=== PATIENT | female | born 1995 | race Caucasian/White ===

== ENCOUNTER 2023-04-08 13:42 | Outpatient (CLI) | payer BC, SELFPAY | END 2023-04-08 13:43 | disposition home or self-care (01) | LOC: NFLDREF 04-14 06:08 | PROVIDERS: Visit Provider Physician Assistant | DX: R30.0 Dysuria (principal); N39.0 Urinary tract infection, site not specified; N30.90 Cystitis, unspecified without hematuria | CPT/HCPCS: 87086 ==

== ENCOUNTER 2023-06-23 10:00 | Outpatient (CLI) | payer BC, SELFPAY | END 2023-06-23 10:01 | disposition home or self-care (01) | PROVIDERS: PCP Physician Assistant Medical; Visit Provider Physician Assistant Medical | DX: Z13.228 Encounter for screening for other metabolic disorders (principal) | CPT/HCPCS: 80053 ==

== ENCOUNTER 2023-09-15 09:02 | Outpatient (CLI) | payer OTHER, SELFPAY ==
--- NOTE | 2023-09-15 09:15 | US_ITS ---
Patient: CATIE OSBORNE Facility:?[facility] Patient ID:?[id number] Site Patient ID:?[id number]. Site :?1995 Study:?US-OB Pelvis TV dating/viability-09/15/2023 9:55:48 AM Ordering Physician:GEORGES Final Report: INDICATION: Unsure dates, estimated gestational age 8 weeks 6 days. Technique: Multiple transvaginal grayscale and Doppler images obtained FINDINGS: Examination shows a single intrauterine gestation. MEASUREMENTS: Right ovary measures 2.3 x 1.5 x 1.5 cm. Corpus luteum present. Left ovary was not visible. EARLY GESTATION MEASUREMENTS: Di Giorgio-rump length 2.8 cm, AGA of 9 weeks, 4 days. Mean gestational sac 3.7 cm, AGA of 9 weeks, 0 days. Yolk sac: 3.8 mm. Heart Rate: 173 bpm. IMPRESSION: 1. Single viable IUP. 2. Measurements consistent with estimated clinical dates. 3. Maternal left ovary was not visible. Dictated by Calin Theodore MD @ 09/15/2023 12:02:32 PM Signed by:?Calin Theodore MD @09/15/2023 12:02:32 PM (Electronic Signature)
== END 2023-09-15 09:03 | disposition home or self-care (01) ==
LOC: US 09:10
PROVIDERS: PCP Physician Assistant Medical; Visit Provider Registered Nurse
DX: Z34.91 Encounter for supervision of normal pregnancy, unspecified, first trimester (principal); Z3A.08 8 weeks gestation of pregnancy
CPT/HCPCS: 76817; 86592; 86703; 86704; 86706; 86762; 86787; 86803; 86850; 86900; 86901; 87086; 87340; 87491; 87591

== ENCOUNTER 2023-09-15 10:28 | Outpatient (CLI) | payer BC, SELFPAY ==
[2023-09-15 18:38] LABS: Chlamydia DNA Amplified* NOT DETECTED (No Detected); GC DNA Amplified* NOT DETECTED (No Detected)
== END 2023-09-15 10:29 | disposition home or self-care (01) ==
PROVIDERS: PCP Physician Assistant Medical; Visit Provider Registered Nurse
DX: Z34.91 Encounter for supervision of normal pregnancy, unspecified, first trimester (principal)
CPT/HCPCS: 86592; 86703; 86704; 86706; 86762; 86787; 86803; 86850; 86900; 86901; 87086; 87340; 87491; 87591

== ENCOUNTER 2023-11-30 08:48 | Outpatient (CLI) | payer MEDICAID, SELFPAY ==
--- NOTE | 2023-11-30 09:15 | US_ITS ---
Patient: CATIE OSBORNE Facility:?[facility] Patient ID:?[id number] Site Patient ID:?[id number]. Site :?1995 Study:?US-OB Pelvis OB ANATOMY-11/30/2023 9:57:19 AM Ordering Physician:?CA RAMOS CNP Final Report: OBSTETRICAL ULTRASOUND ? ANATOMY SURVEY INDICATION: anatomy scan. HELENA by ULTRASOUND: 04/15/2024. GESTATIONAL AGE: 20w 3d. TECHNIQUE: Transabdominal pelvic ultrasound. COMPARISON: 09/15/2019. FINDINGS: position: Breech. Cervix: Visualized. Length of closed cervix: 3.8 cm. Placenta position: Anterior. Placenta tip to internal os: 4.6 cm. Umbilical cord: 3-vessel cord. Placental insertion: Central. Amniotic fluid: 5.0 cm SDP. ANATOMY SURVEY: Observed Structures Cerebellum: 2.0 cm, 20 weeks 4 days Cisterna magna: 3.9 mm Nuchal fold: 4.5 mm Lateral ventricle: 6.1 mm CSP Midline falx Choroid plexus Spine Stomach Abdominal cord insert Urinary bladder Kidneys Diaphragm Nose/lips Orbital view Profile Upper extremities Lower extremities Hands Feet 4-chamber heart LVOT RVOT 3VV 3VTV Biometry: BPD: 4.9 cm, 20 weeks 5 days, 60%. HC: 18.4 cm, 20 weeks 6 days, 59%. AC: 15.8 cm, 21 weeks 0 days, 62%. FL: 3.4 cm, 20 weeks 3 days, 44%. FL/AC: 21.18%. HC/AC ratio: 1.17. heart rate: 142 bpm. age by this ultrasound: 20 weeks 5 days. HELENA by this ultrasound: 04/13/2024. Estimated weight: 374.56 grams (13 ounces). Percentile by HELENA: 64%. IMPRESSION: 1. Measurements are consistent with dates. Good interval growth since the prior exam. 2. Normal anatomic survey. Clain Theodore M.D. Body/Diagnostic Radiologist [email or web address] RACHEL/jarrett D& Transcribed: 12:35 p.m. SP/Dictated by: Calin Theodore MD @ 12/01/2023 10:40:00 AM Signed by:?Cailn Theodore MD @12/01/2023 12:46:35 PM (Electronic Signature)
== END 2023-11-30 08:49 | disposition home or self-care (01) ==
LOC: US 08:49
PROVIDERS: PCP Physician Assistant Medical; Visit Provider Registered Nurse
DX: Z34.92 Encounter for supervision of normal pregnancy, unspecified, second trimester (principal); Z3A.20 20 weeks gestation of pregnancy
CPT/HCPCS: 76805

== ENCOUNTER 2023-12-28 11:28 | Outpatient (CLI) | payer MEDICAID, SELFPAY ==
[2023-12-28 12:03] LABS: Clue Cells No Clue Cells Seen (None Seen); Trichomonas No Trichomonas Seen (None Seen); Yeast Yeast Seen (None Seen)
== END 2023-12-28 11:29 | disposition home or self-care (01) ==
LOC: NFLDREF 11:29
PROVIDERS: PCP Physician Assistant Medical; Visit Provider Obstetrics & Gynecology
DX: N90.89 Other specified noninflammatory disorders of vulva and perineum (principal)
CPT/HCPCS: 87210

== ENCOUNTER 2024-01-25 11:12 | Outpatient (CLI) | payer MEDICAID, SELFPAY | END 2024-01-25 11:13 | disposition home or self-care (01) | PROVIDERS: PCP Physician Assistant Medical; Referring Provider Physician Assistant Medical; Visit Provider Obstetrics & Gynecology | DX: Z34.83 Encounter for supervision of other normal pregnancy, third trimester (principal) | CPT/HCPCS: 86592 ==

== ENCOUNTER 2024-03-07 10:50 | Outpatient (CLI) | payer MEDICAID, SELFPAY | END 2024-03-07 10:51 | disposition home or self-care (01) | LOC: NFLDREF 03-08 11:43 | PROVIDERS: PCP Physician Assistant Medical; Referring Provider Physician Assistant Medical; Visit Provider Obstetrics & Gynecology | DX: O99.013 Anemia complicating pregnancy, third trimester (principal); Z3A.34 34 weeks gestation of pregnancy | CPT/HCPCS: 82728 ==

== ENCOUNTER 2024-03-14 09:59 | Outpatient (RCR) | payer MEDICAID, SELFPAY ==
--- NOTE | 2024-03-08 14:13 | URNOTE ---
Request received for authorization for Iron Sucrose (Venofer) (J1756). Prior authorization is not required per [facility]'s Medical Injectable Drug Authorization List.
[2024-03-14] MEDS: 0.9 % SODIUM CHLORIDE 250 ml IV (10:15)
[2024-03-14] MEDS: SODIUM CHLORIDE 0.9 % (FLUSH) 10 ML SYRINGE IVF (10:15)
[2024-03-14] MEDS: IRON SUCROSE COMPLEX 200 MG in 0.9 % SODIUM CHLORIDE 100 ml 100 ML 440 MG IVPB (10:23)
[2024-03-14 10:27] VITALS: BP 108/72; PULSE 81; RESP 20; TEMP 36.7; O2SAT 97
[2024-03-14 10:41] VITALS: BP 107/69; PULSE 88; RESP 16; TEMP 36.6; O2SAT 99
[2024-03-14 11:14] VITALS: BP 97/62; PULSE 76; RESP 14; TEMP 36.8; O2SAT 98
== END 2024-09-10 23:59 | disposition home or self-care (01) ==
LOC: CCIC 09:59
PROVIDERS: PCP Physician Assistant Medical; Referring Provider Physician Assistant Medical; Visit Provider Obstetrics & Gynecology
DX: O99.019 Anemia complicating pregnancy, unspecified trimester (principal); D50.9 Iron deficiency anemia, unspecified
CPT/HCPCS: 96365; J1756; J7050

== ENCOUNTER 2024-03-21 11:45 | Outpatient (CLI) | payer MEDICAID, SELFPAY ==
[2024-03-22 16:21] LABS: Strep B DNA Probe POSITIVE (Negative)
[2024-03-22 20:07] LABS: Strep B Susceptibility Needed? No
== END 2024-03-21 11:46 | disposition home or self-care (01) ==
LOC: NFLDREF 11:45
PROVIDERS: PCP Physician Assistant Medical; Visit Provider Obstetrics & Gynecology
DX: Z34.83 Encounter for supervision of other normal pregnancy, third trimester (principal)
CPT/HCPCS: 87081; 87653

== ENCOUNTER 2024-03-26 00:27 | Outpatient (CLI) | payer MEDICAID, SELFPAY ==
[2024-03-26 00:41] VITALS: BP 114/66; PULSE 82
[2024-03-26 00:42] VITALS: PULSE 86; O2SAT 97
[2024-03-26 00:45] VITALS: RESP 16; TEMP 36.9
--- NOTE | 2024-03-26 04:37 | PC.OBNST ---
NST Note NST Note Start: 03/26/24 00:35 Freq: ONCE Status: Active Protocol: Document 03/26/24 04:25 ASH (Rec: 03/26/24 04:27 ASH [id number]) NST Note 2 Para (# of births) 0 EDC 04/15/24 Gestational Age In Weeks & Days 37 Weeks & 1 Days Patient Presented with Complaint(s) of Decreased movement Reactive Yes Appropriate for Gestational Age Yes DIANA Phillip RN Date 03/26/24 Reactive Yes Appropriate for Gestational Age Yes DIANA Eduardo, DIANA Date 03/26/24 OB NST charge Yes Complete NST Note via Write Note Yes The provider's electronic signature indicates the NST is reactive/appropriate for gestational age. *Note to provider: If an addendum is required, open the patient's chart and click on the note under the Nurse/Allied Health tab.
== END 2024-03-26 01:10 | disposition home or self-care (01) ==
LOC: OB OUT 00:27 → OB 00:27
PROVIDERS: PCP Physician Assistant Medical; Visit Provider Obstetrics & Gynecology
DX: O36.8130 Decreased fetal movements, third trimester, not applicable or unspecified (principal); Z3A.37 37 weeks gestation of pregnancy
CPT/HCPCS: 59025; G0463

== ENCOUNTER 2024-03-29 09:18 | Outpatient (CLI) | payer MEDICAID, SELFPAY | END 2024-03-29 09:19 | disposition home or self-care (01) | LOC: NFLDREF 04-03 07:02 | PROVIDERS: PCP Physician Assistant Medical; Referring Provider Physician Assistant Medical; Visit Provider Obstetrics & Gynecology | DX: O99.013 Anemia complicating pregnancy, third trimester (principal); D64.9 Anemia, unspecified; Z3A.37 37 weeks gestation of pregnancy | CPT/HCPCS: 82728 ==

== ENCOUNTER 2024-04-12 04:52 | Outpatient (CLI) | payer MEDICAID, SELFPAY ==
[2024-04-12 05:14] VITALS: BP 127/72; PULSE 78
[2024-04-12 05:15] VITALS: TEMP 36.7
[2024-04-12] MEDS: hydrOXYzine pamoate 25 MG CAPSULE 100 MG PO (06:35)
[2024-04-12] MEDS: MORPHINE 10 MG/ML inj IM (06:37)
--- NOTE | 2024-04-12 06:56 | PC.OBNST ---
NST Note NST Note Start: 04/12/24 05:02 Freq: ONCE Status: Active Protocol: Document 04/12/24 06:54 JEFRY (Rec: 04/12/24 06:55 JEFRY [id number]) NST Note 2 Para (# of births) 0 EDC 04/15/24 Gestational Age In Weeks & Days 39 Weeks & 4 Days Patient Presented with Complaint(s) of Contractions/cramping Reactive Yes Appropriate for Gestational Age Yes DIANA Lorenzo RNC Date 04/12/24 Reactive Yes Appropriate for Gestational Age Yes DAINA Bowling RN Date 04/12/24 OB NST charge Yes Complete NST Note via Write Note Yes The provider's electronic signature indicates the NST is reactive/appropriate for gestational age. *Note to provider: If an addendum is required, open the patient's chart and click on the note under the Nurse/Allied Health tab.
== END 2024-04-12 06:50 | disposition home or self-care (01) ==
LOC: OB OUT 04:52 → OB 04:53
PROVIDERS: PCP Physician Assistant Medical; Visit Provider Obstetrics & Gynecology
DX: O99.013 Anemia complicating pregnancy, third trimester (principal); Z3A.39 39 weeks gestation of pregnancy
CPT/HCPCS: 59025; G0463; A9270; J2270

== ENCOUNTER 2024-04-12 13:50 | Inpatient (IN) | payer MEDICAID, SELFPAY ==
[2024-04-12] VITALS (82 sets, daily range): BP systolic 92–166; BP diastolic 51–126; PULSE 72–155; RESP 16–18; TEMP 37.2–38.4; O2SAT 79–100
[2024-04-12] MEDS: LACTATED RINGERS 1000 ML 1,000 ML 1200 ML IV ×2 (13:55→15:39)
[2024-04-12] MEDS: AMPICILLIN 2 GM in 0.9 % SODIUM CHLORIDE Mini-bag 100 ML IVPB ×2 (14:00→23:27)
[2024-04-12] MEDS: ROPIVACAINE 0.2% 100 ml 100 ML 12 MG EPIDURAL ×2 (14:18→21:10)
[2024-04-12] MEDS: LIDOCAINE 2% (PF) 5 ML VIAL EPIDURAL (14:18)
--- NOTE | 2024-04-12 14:49 | P.ANBPRC_ITS ---
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 She resides in [place]. What is your current living situation?: I presently have a place to live Problems where you live: no known problems In the past 12 months, utilities in danger of being shut off: no In past 12 months, lack of transportation kept you from medical appts, meetings, work, or getting things needed for daily living: no In the past 12 mos, have been you worried that your food would run out before you had money to buy more?: never true In the past 12 mos, the food you bought just didn't last and you didn't have money to buy more?: never true Smoking Status: Never smoker How often does anyone, including family, friends and others, physically hurt you : never How often does anyone, including family, friends and others, insult or talk down to you: never How often does anyone, including family, friends and others, threaten you with harm: never How often does anyone, including family, friends and others, scream or curse at you: never Little interest or pleasure in doing things: not at all Feeling down, depressed, or hopeless: not at all Meds Home Medications and Allergies Home Medications ?Medication ?Instructions ?Recorded ?Confirmed ?Type docosahexaenoic acid 200 mg 200 mg PO DAILY 09/15/23 04/12/24 History capsule ( DHA) diphenhydramine HCl 25 mg capsule 25 mg PO QHS PRN 10/12/23 04/12/24 History (Benadryl) calcium carbonate (Tums) 200 mg PO BID PRN 07/23/24 09/25/24 History sumatriptan succinate 100 mg tablet 100 mg PO Q2-4H PRN migraine 03/14/24 04/12/24 History headache Allergies Allergy/AdvReac Type Severity Reaction Status Date / Time gluten Allergy Intermediate Gastrointestinal Verified 04/12/24 05:02 Upset Results Vital Signs Vital Signs: Last Vital Signs Pulse 103 H 04/12/24 14:47 BP 132/74 04/12/24 14:47 Pulse Ox 99 04/12/24 14:48 Anesthesia Procedures Epidural Insertion Patient Location: OB Start Time: 14:02 Stop Time: 15:02 Start Date: 04/12/24 Stop Date: 04/12/24 Reason for Block: procedure for pain Patient Position: sitting Performed By: Argelia Asher Preanesthetic Checklist: IV checked, risks and benefits discussed, monitors and equipment checked, pre-op evaluation, timeout performed and anesthesia consent Prep: chlorhexidine gluconate Monitoring: blood pressure monitoring, continuous pulse oximetry and heart rate Approach: midline Vertebral Space: lumbar (1-5) Epidural Technique: ANNETTE saline Needle Type: Tuohy needle Injection Technique: continuous catheter (continuous catheter) Needle gauge: 17 Needle Length (cm): 10 cm Needle Insertion Depth (cm): 7 Catheter Gauge: 19 Catheter Type: multi-orifice Catheter at skin depth (cm): 15 Test Dose Result: negative and lidocaine 1.5% with epinephrine 1 to 200,000
[2024-04-12] MEDS: PHENYLEPHRINE 100 MCG/ML SYRINGE IVP ×3 (15:47→16:01)
[2024-04-12] MEDS: ePHEDrine sulfate 5 MG/ML inj 10 MG IVP (16:05)
--- NOTE | 2024-04-12 17:10 | P.LDBA_ITS ---
Subjective History of Present Illness Narrative: Patient is being admitted to Labor and Delivery for spontaneous onset of labor. She is a 28 year old at 39w4d gestation. is complicated by iron deficiency anemia, GBS positivity, anxiety and history of migraines. Her full history and physical was dictated by myself on 03/29/24. Please see this for details. Alexa was seen in triage this morning for latent labor (3cm at dismissal). She returned to care this afternoon with regular and painful contractions, occurring q2m. She was found to be 6.5cm/80%/-1 with bulging bag of water. She was admitted and epidural analgesia was administered. She is now feeling very comfortable. Denies vaginal bleeding or leaking of fluid. Endorses active movement. Specific Issues/Plans G 2 P 0010 # Uncertain paternity. Patient completed Paternity testing through [facility] in [place] (blood draw for her and cheek swab for male partner) and found out her boyfriend has a 0% chance that the baby is his. Patient plans to notify the FOB, whom she really doesn't know. Her boyfriend is supportive of her and plans to stay with her. # Anxiety. Currently taking 5 or 10 mg Lexapro daily. Stable at 1st OB. # Has a history of migraines. Has sumatriptan, has not used during . # Anemia (Hgb 9.7 on 01/25/24) * Oral iron supplement prescribed * Recheck hemoglobin at 34 weeks: 9.4. Ferritin: 5.0 (L) * Hemoglobin 03/29/24: 9.9, ferritin 18.2 Flu: Administered today Covid: Up-to-date according to patient Tdap: 02/08/24 GBS: POSITIVE H&P: Marilee on 03/29 OB - Problem Based A/P Additional Plan (1) Anxiety: Problem details: 01/13/2023-start Lexapro History of venlafaxine, BuSpar, bupropion Status: Acute (2) Anemia affecting : Status: Acute (3) : Status: Acute (4) Migraine: Status: Acute (5) Depression: Status: Acute Plan Alexa is a 28yo admitted at 39w4d GA for spontaneous onset of labor. is complicated by iron deficiency anemia, GBS positivity, mood disorder and history of migraines. Reassuring maternal and status on adm ission. - s/p epidural placement, excellent pain improvement. - GBS positive, IV ampicillin administered shortly upon admission. Adequately treated at 1800. Continue ampicillin per protocol. - Admission RN exam was 6.5cm, 80%, -1. Repeat exam by myself at 1800 was 6.5/100/-1, s/p AROM with return of clear fluid. - Repeat CBC and T/S on admission given iron deficiency anemia. - Anticipate next exam in 2 hours, sooner as clinically indicated. OB Exam Physical Exam Vital signs: Pulse BP Pulse Ox 81 103/52 L 98 04/12/24 17:04 04/12/24 17:04 04/12/24 15:13 Narrative: General: Alert and oriented, in no acute distress Psych: Appropriate mood and affect Abdomen: Gravid. Non-tender. EFW 3400g by Michael's. Cervix: 6.5/80/-1 by RN FHR: Category 1. FHR baseline 140bpm, moderate variability, accelerations presen t and decelerations absent.
[2024-04-12] MEDS: AMPICILLIN 1 GM in 0.9 % SODIUM CHLORIDE Mini-bag 100 ML IVPB (18:07)
[2024-04-12 18:29] LABS: Basophils Percent Auto 0.1 % (0.0-3.0); Hematocrit 34.3 % (33.0-51.0); Hemoglobin* 10.9 gm/dL (12.0-16.0); Immature Granulocytes Pct Auto 0.2 %; Lymphocytes Percent Auto 6.7 % (20-44); Mean Corpuscular HGB Conc 32 gm/dL (32-36); Mean Corpuscular Hemoglobin 28 pg (26-34); Mean Corpuscular Volume 89 fL (80-100); Monocytes Percent Auto 3.3 % (0.0-11.0); Neutrophils Percent Auto 89.7 % (42.0-72.0); Platelet Count* 284 K/uL (140-440); RDW Coefficient of Variation % 15.1 % (11.5-15.5); Red Blood Count 3.85 m/uL (4.00-5.20); White Blood Count* 20.39 K/uL (4.50-11.00)
[2024-04-12 18:32] LABS: Slide Review Reflex No
[2024-04-12] MEDS: fentaNYL 100 MCG/2 ML inj EPIDURAL (20:11)
[2024-04-12] MEDS: OXYTOCIN 30 unit/500 ML in NS 30 UNIT/500 ML BAG 300 UNIT IVPB (21:41)
[2024-04-12] MEDS: LIDOCAINE 1 % PF 30 ML INJECTION (22:01)
--- NOTE | 2024-04-12 22:48 | W.PM.VAGDEL1 ---
Procedure Procedure Done: Global Procedure Details: Normal spontaneous vaginal delivery Events: Other (Iron deficiency anemia, anxiety) Intrapartal Events: Labor Augmentation Delivery augmentation: rupture of membranes Delivery monitor: external FHT Route of delivery: Laceration description: Vaginal - 1st Degree (Minor vaginal laceration, bilateral labial lacerations) Delivery repair: Vicryl and Chromic Estimated blood loss (mL): 150 Anesthesia type: Epidural Disposition: floor Complications: None Narrative: Alexa Thomas is a 28 year old at 39w4d gestation who was admitted for spontaneous onset of labor. is complicated by iron deficiency anemia, GBS positivity, anxiety and history of migraines. Her full history and physical was dictated by myself on 03/29/24. Please see this for details. Her labor was expectantly managed, while IV ampicillin was administered for GBS prophylaxis. It was then augmented with AROM and epidural were utilized for pain management. Status of bag of lopez: AROM performed with return of clear fluid. heart tones during active labor were category 1 and 2. She was noted to be complete and +2 station and JANEE position at 2108. Maternal expulsive efforts began at 2121 and she made excellent descent with pushing efforts. She had a at 214. Baby delivered OA, restituted JANEE and the anterior and posterior shoulders delivered without difficulty. Loose nuchal cord was noted, delivered through and reduced at the perineum. The cord was clamped and cut after delayed cord clamping. Active management of the third stage was initiated with pitocin and gentle traction on the umbilical cord, and the placenta delivered spontaneous and intact at 2145. Of note, she had a single elevated temperature of 38.3 deg C while pushing. Patient noted feeling warm, denies uterine tenderness. Maternal tachycardia noted consistent with expulsive efforts. No tachycardia or purulent drainage. Given elevated WBC noted on prior lab evaluation, a single dose of IV ampicillin and gentamicin was ordered due to concern for chorioamnionitis. Cord gases sent: no Cord blood sent for ABO: no Perineum and vagina were inspected, and the following lacerations were noted: Minor vaginal laceration and bilateral labial lacerations repair of the vaginal laceration was completed with running locking sutures with 3-0 Vicryl. The labial lacerations were noted to be superficial with small volume bleeding, where a single interrupted stitch of 3-0 chromic was utilized on the left and two interrupted sutures of 3-0 chromic on the right. Excellent tissue approximation and hemostasis was noted. Uterine tone was noted to be firm. Excellent hemostasis was noted, with total EBL of 150. All counts were correct. Mother and in stable condition following the .? details: - Liveborn female at 2141 - weight: pending - APGARs: 9 and 9 [place] Gender: Female presentation: vertex Placental Delivery Description: Spontaneous Cord Description: 3 Vessels
[2024-04-13] VITALS (8 sets, daily range): BP systolic 95–128; BP diastolic 52–78; PULSE 72–88; RESP 16; TEMP 36.7–37.3; O2SAT 96–97
[2024-04-13 06:21] LABS: Hemoglobin* 9.2 gm/dL (12.0-16.0)
[2024-04-13] MEDS: FERROUS SULFATE 325 MG TABLET PO (08:20)
[2024-04-13] MEDS: ACETAMINOPHEN 500 MG TABLET 1000 MG PO (08:21)
[2024-04-13] MEDS: DOCUSATE SODIUM 100 MG CAPSULE PO (08:21)
--- NOTE | 2024-04-13 09:16 | P.OBPN_ITS ---
OB - PN:Subj Subjective Time Seen by Provider: 09:16 Date Seen: 04/13/24 Patient comments OB post-: perineal pain status: and doing well [place] feeding status: exclusively OB - PN: Obj Exam Physical Exam: Vital signs: Temp Pulse Resp BP Pulse Ox O2 Del Method 98.4 F 81 16 105/67 97 Room Air 04/13/24 08:15 04/13/24 08:15 04/13/24 08:15 04/13/24 08:15 04/13/24 08:15 04/13/24 08:15 Narrative: Day 1:? Vaginal Delivery at 39 and 4/7 weeks.? ?? Complications:? none? Alexa feels well.? Her pain is well controlled with current medications.? She has no new complaints; notes intermittent pelvic pressure, aggravated by .? Urinary output is adequate and she is voiding without difficulty.? Has a good appetite, is tolerating a general diet, is passing flatus, and has not had a bowel movement.? Has moderate amount of rubra lochia.? She is ambulating well.? GENERAL APPEARANCE:? normal affect, alert, no distress? MOOD:? appropriate? CHEST:? clear to auscultation and percussion? HEART:? regular rate and rhythm? ABDOMEN:? soft, non-tender the uterine fundus is firm and is appropriate for the stage of recovery. ? PERINEUM:? mild edema of the perineum, there is a first degree laceration that is healing well w/small amt ecchymosis and labial edema, soft to palpation.? EXTREMITIES:? normal and no edema? Constitutional: Constitutional: no acute distress and average body habitus OB - PN: Obj Data Labs Labs: Laboratory Results - last 24 hr 04/12/24 04/13/24 13:56 06:00 WBC 20.39 H RBC 3.85 L Hgb 10.9 L 9.2 L Hct 34.3 MCV 89 MCH 28 MCHC 32 RDW Coeff of [place]a 15.1 Plt Count 284 Neut % (Auto) 89.7 H Lymph % (Auto) 6.7 L [place] % (Auto) 3.3 Eos % (Auto) 0.0 Baso % (Auto) 0.1 Neut # (Auto) 18.30 H Lymph # (Auto) 1.40 [place] # (Auto) 0.70 Eos # (Auto) 0.00 Baso # (Auto) 0.00 Abs Immat Gran (auto) 0.00 Imm/Tot Granulo (auto) 0.2 Blood Type A Positive Antibody Screen NEGATIVE OB - PN: A/P Delivery Assessment and Plan (1) Anemia affecting : Status: Acute (2) care and examination of lactating mother: Status: Acute (3) Chorioamnionitis: Status: Acute Plan day: 1 Plan: routine care Comments: Anticipate d/c tomorrow. Reviewed comfort cares for perineal laceration.
--- NOTE | 2024-04-13 12:10 | PM.ANPOST ---
Post Anesthesia Note Post Anesthesia Note Patient seen: Inpatient Respiratory Status: adequate Cardiovascular Status: adequate Mental Status: baseline Pain: adequate Temp: baseline Anesthetic awareness: no Complications: none Follow care: none
[2024-04-13] MEDS: IBUPROFEN 600 MG TABLET PO (16:07)
[2024-04-14 00:45] LABS: Rapid Plasma Reagin (RPR) Non Reactive (Non Reactive)
[2024-04-14 04:22] VITALS: BP 98/59; PULSE 68; RESP 16; TEMP 36.9
--- NOTE | 2024-04-14 07:14 | P.DS_ITS ---
DS: Providers Provider Date Seen: 04/14/24 Date of admission: 04/12/24 13:50 Primary care physician: Argelia Cole PA-C Admitting Clinician: Kristen Hunt MD Attending Physician on discharge: Shavonne CASSIDY APRN Date of Discharge: 04/14/24 DS: Diagnosis Discharge Diagnosis (1) care and examination of lactating mother: Status: Acute (2) Chorioamnionitis: Status: Acute (3) Anemia affecting : Status: Acute (4) Depression: Status: Acute (5) Anxiety: Status: Acute Problem details: 01/13/2023-start Lexapro History of venlafaxine, BuSpar, bupropion Exam Narrative: Exam Narrative: GENERAL APPEARANCE:? normal affect, alert, no distress MOOD:? appropriate CHEST:? clear to auscultation HEART:? regular rate and rhythm ABDOMEN:? soft, non-tender the uterine fundus is 1 cm below Umbilicus, Midline and is appropriate for the stage of recovery. PERINEUM:? deferred since baby is nursing EXTREMITIES:? normal and minimal edema Const: Vital Signs, click to edit/add: Vital Signs - 24 hr 04/13/24 08:15 04/13/24 12:54 04/13/24 16:03 Temperature 98.4 F 98.1 F 98.2 F Pulse Rate [Blood Pressure Cuff] 81 72 77 Respiratory Rate 16 16 16 Blood Pressure [Le ft Arm] 105/67 95/52 L 105/69 Pulse Oximetry 97 96 Oxygen Delivery Me thod Room Air Room Air 04/13/24 20:55 04/13/24 23:50 04/14/24 04:22 Temperature 98.3 F 98.8 F 98.5 F Pulse Rate [Blood Pressure Cuff] 73 77 68 Respiratory Rate 16 16 16 Blood Pressure [Le ft Arm] 105/68 109/78 98/59 L Pulse Oximetry 96 96 Oxygen Delivery Me thod Room Air Room Air Room Air OB - DS: Summary Hospital Course Hospital Course: Alexa is a 28 y.o. G 2 P 1011 who was admitted to L & D for spontaneous labor.? She had a NVD that was complicated by one elevated temp and elevated WBC. She was treated with one dose of amp and gent and remained afebrile the rest of the period. The patient feels well.? The pain is well controlled with current medications.? She has no new complaints.? She is breast feeding and reports things are going well. the patient has done well.? Vitals hav e been stable.? She has remained afebrile.? Has a good appetite, is tolerating a general diet.? She is voiding without difficulty.? She is passing gas and has not had a bowel movement.? She is ambulating and denies any dizziness.? Has small amount of rubra lochia. She is unsure of which option she desires for prevention.? ?? Problems: chorioamnionitis? ?? plan:? Discharge home with baby.? Follow up in 2 weeks and 6 weeks.? , may see if needed? Hgb 9.2. Iron supplement ordered orally every other day? Call for signs/symptoms of preeclampsia? For pain control of perineum, breast and pelvic pain, take 600 mg Ibuprofen every 6 hours as needed by mouth or 1000 mg acetaminophen (Tylenol) every 6 hours by mouth as needed. You can alternate these so you are taking something every 3 hours as needed. A heating pad can also be used for your abdomen or breasts.?Continue Colace, docusate sodium up to twice daily until stools return to normal. Peripartum Data delivery method: Vaginal Laceration description: Periurethral - 1st Degree Episiotomy description: None complications: other (Choriodiagnosis) Infant Gender: Female Discharge Plan: Home Status at Discharge Overall status at discharge: patient is progressing back to baseline Time Spent with Patient Time attestation: Total time spent providing and/or coordinating discharge services: Time spent: Less than 30 minutes Discharge Plan Discharge Disposition: Home, Self-Care Date of Admission: 04/12/24 13:50 Attending Provider on Discharge: Birgit Car Primary Care Provider: Argelia Cole Condition: Stable Anticipated Discharge Date/Time: 04/14/24 12:00 Discharge Medications: Continued DHA 200 mg capsule 200 mg PO DAILY docusate sodium [Colace] 100 mg capsule 100 mg PO QDAY PRN (Reason: constipation) Qty: 90 0RF Discontinued diphenhydramine HCl [Benadryl] 25 mg capsule 25 mg PO QHS PRN Hold Instructions: Seasonal calcium carbonate [Tums] 200 mg calcium (500 mg) tablet,chewable 200 mg PO BID PRN omeprazole 40 mg capsule,delayed release(DR/EC) 40 mg PO QDAY Qty: 90 0RF Discharge Orders: Discharge Order (Routine); Ordered 04/14/24 Ordered By: Birgit Car Patient Education: OB [place] Care, OB Vaginal/Breast Feeding Additional Instructions: Discharge instructions were reviewed with the patient including signs and symptoms of infection and home going medications Nothing vaginally for 6 weeks: no tampons or intercourse Do not drive while taking narcotic pain medication(s) Off Work or School for 6 weeks Symptoms to report to doctor: * Bleeding that saturates more than one pad per hour * Passing clots larger than the size of a golf ball * Pain not relieved by prescribed medication * Fever above 100.4 degrees Fahrenheit * A foul vaginal odor * Difficulty in emotions, mood, and functions * Thoughts of hurting yourself and/or * Painful, reddened area in your breast * Any drainage, redness, or tenderness in your IV/epidural site * Severe headache that doesn't improve after taking medications * Changes in vision, including temporary loss of vision, blurred vision, and/or light sensitivity * Upper abdominal pain (usually under ribs on the right side) * Decrease in urination or painful, frequent urinating * Chest pain * Shortness of breath * Tenderness or pain with redness and/swelling in the calf(s) of your leg 2-week visit: discuss infant feeding concerns, review control options and screen for anxiety/depression. 6-week visit for an annual exam. consultation services are available to all mothers and babies for the first year after delivery.? To make an appointment, please call [phone]. For pain control of perineum, breast and pelvic pain, take 600 mg Ibuprofen every 6 hours as needed by mouth or 1000 mg acetaminophen (Tylenol) every 6 hours by mouth as needed. You can alternate these so you are taking something every 3 hours as needed. A heating pad can also be used for your abdomen or breasts.?Continue Colace, docusate sodium up to twice daily until stools return to normal. Activity Level: Activity as Tolerated and No strenuous activity Discharge Diet: Regular Follow Up Appointments: [facility]Provider Group] Forms: [facility] Info Instructions
[2024-04-14] MEDS: DOCUSATE SODIUM 100 MG CAPSULE PO (08:54)
[2024-04-14] MEDS: FERROUS SULFATE 325 MG TABLET PO (08:54)
[2024-04-14 09:12] VITALS: BP 109/70; PULSE 71; RESP 16; TEMP 36.7; O2SAT 97
== END 2024-04-14 11:30 | disposition home or self-care (01) | DRG 805 ==
LOC: OB OUT 13:50 → OB 13:50
PROVIDERS: Absent Provider Obstetrics & Gynecology; Admitting Provider Obstetrics & Gynecology; PCP Physician Assistant Medical; Visit Provider Obstetrics & Gynecology
DX: O99.02 Anemia complicating childbirth (principal); O41.1230 Chorioamnionitis, third trimester, not applicable or unspecified; Z37.0 Single live birth; O70.0 First degree perineal laceration during delivery; D50.9 Iron deficiency anemia, unspecified; O99.824 Streptococcus B carrier state complicating childbirth; O99.344 Other mental disorders complicating childbirth; F41.9 Anxiety disorder, unspecified; F32.A Depression, unspecified; G43.909 Migraine, unspecified, not intractable, without status migrainosus; Z3A.39 39 weeks gestation of pregnancy
CPT/HCPCS: 01967; 36415; 82261; 82760; 82776; 83020; 83021; 83498; 83516; 83789; 84443; 85018; 85025; 86592; 86850; 86900; 86901; A9270; J0290; J1580; J2001; J2371; J2795; J3010; J7120

== ENCOUNTER 2024-05-05 14:31 | Outpatient (CLI) | payer MEDICAID, SELFPAY ==
--- NOTE | 2024-05-05 16:05 | W.PM.LAC.MC ---
Consult Note - Mom Date of Visit Date of visit: 05/05/24 Reason for consultation: Assistance Needed Visit Code: Visit Patient's Information Phone number: [phone] : 1 Para: 1 Allergies gluten Allergy (Intermediate, Verified 04/12/24 16:06) Gastrointestinal Upset Mother's Medical History: Medical History (Updated 04/19/24 @ 00:00 by Background Daemon) Migraine ?G43.909 - Migraine, unspecified, not intractable, without status migrainosus (ICD-10) Anemia affecting ?O99.019 - Anemia complicating , unspecified trimester (ICD-10) GERD (gastroesophageal reflux disease) ?K21.9 - Gastro-esophageal reflux disease without esophagitis (ICD-10) Anxiety ?F41.9 - Anxiety disorder, unspecified (ICD-10) Depression ?F32.A - Depression, unspecified (ICD-10) Peritonsillar abscess ?J36 - Peritonsillar abscess (ICD-10) Work Plans: return to work beginning of June Delivery Information Delivery type: Vaginal Gestational Age: 39 weeks Gestational Weight For Age: AGA Weight: 3.095 kg Discharge Weight: 2.965 kg Baby's Information Baby's Age at Visit: 3 weeks 2 days Baby's Provider or Clinic: [facility] Jaundice: No Past Experience Past Experience: No Current Frequency of Day Feedings: every 2-2.5 hours Frequency of Night Feedings: every 3-4 hours Both Breasts: Yes Suck: strong Latch: pretty good, better on right than left Length of Time: 30 minutes total Goals: as long as possible Pumping Pumping: No Supplementing EBM Supplement: No Formula Supplement: No Baby Elimination Number of Wet Diapers a Day: each feeding Number of BM a Day: 8, yellow, seedy Breast/Nipple Condition Breast Information: Breasts are symmetrical with rounded lower quadrants, intramammary distance is less than 1.5 inches. No erythema. Nipples are supple, everted prior to feeding. Breast Shape: Round Engorgement: No Maternal Nipple Condition - Left: Common Nipple Maternal Nipple Condition - Right: Common Nipple Sore Nipples: No (had a milk bleb, getting better and less sore over the last few days) Baby Assessment Skin: Normal Tongue/frenulum: Normal/elastic Palate: Narrow Lips: Relaxed and Symmetrical Jaw Alignment: Symmetrical Mucosa: [place], moist Onsite Observation Pre-Feed weight: 3.478 kg Post-Feed weight: 3.54 kg Milk Transferred (mL): 62 (10m on right, 10m on left, 10m on right) Position: Cross cradle Attachment/latch-on achieved: Easily Suck pattern: Suck burst and normal rest Swallow: Audible, consistent and Gulping Behavior following feed: Alert, content Pre-Nursing Left Nipple: Within Normal Limits Pre-Nursing Right Nipple: Within Normal Limits Post-Nursing Left Nipple: Within Normal Limits Post-Nursing Right Nipple: Within Normal Limits Assessments/Interventions Assessments/Interventions: Mom has been having a hard time getting baby to latch on her left breast, a little better over the last few days for unknown reason. Also, when mom nurses on her right side, baby sometimes goes and off a few times with some coughs/choking sounds. Baby latched quite easily to the right breast, came off 1 time but relatched easily. One little cough noted and then baby sustained nursing well for 10 minutes before getting sleepy. Baby tucks bottom lip up and in; try to adjust with moderate success. Babe then latched to the left breast quite easily with a wide, deep comfortable latch. Babe then latched again to the right breast and awake and eager to nurse strongly again, no on and off this time. Mom used breast compression on both breasts to help keep baby engaged in feeding. Worked with mom to relatch on the right breast with a more asymmetric latch to help keep bottom lip flanged out and latched deeply. Assured mom baby is transferring milk well; 62 ml for a feeding is reasonable for a baby this age/weight who is . And weight gain is excellent so this is also reassuring. Education provided: Early feeding cues to maximize timing of latching, Asymmetric latch technique for wide/deep latch to increase milk, Transfer for baby and increase comfort for mom, Sore nipple treatment options, Alternative feeding methods (SNS, cup, finger feeding, bottling) and Milk collection, storage Feeding Plan: Continue current feeding routine; okay to wait for baby to cue for feedings, especially at night. Would not go longer than 3 hours during the day and allow longer stretches at night if baby wants to sleep longer. Can pump after 1st morning feed to build a small milk supply for freezer; 1/2-1oz a day is all that's needed to build supply. Add bottles in now to prepare for return to work; once a day for 3-4 days to be sure baby able/willing to feed with bottle. Then at least a few times a weeks to maintain this learning. Discussed bottle options and paced bottle feeding. Time Spent Time spent with patient (min): 70 (reviewing EMR and face to face with mom and baby) Meds Home Medications and Allergies Home Medications ?Medication ?Instructions ?Recorded ?Confirmed ?Type docosahexaenoic acid 200 mg 200 mg PO DAILY 09/15/23 04/12/24 History capsule ( DHA) Allergies Allergy/AdvReac Type Severity Reaction Status Date / Time gluten Allergy Intermediate Gastrointestinal Verified 04/12/24 16:06 Upset
== END 2024-05-05 14:32 | disposition home or self-care (01) ==
LOC: OB LAC 14:31
PROVIDERS: PCP Physician Assistant Medical; Visit Provider Obstetrics & Gynecology
DX: Z39.1 Encounter for care and examination of lactating mother (principal)
CPT/HCPCS: G0463

== ENCOUNTER 2024-10-20 13:01 | Outpatient (CLI) | payer MEDICAID, SELFPAY ==
--- NOTE | 2024-10-20 13:00 | CRLHL7_ITS ---
For Patients: As a result of the Century Cures Act, medical imaging exams and procedure reports are released immediately into your electronic medical record. You may view this report before your referring provider. If you have questions, please contact your health care provider. Indication: Dating and Viability LMP: 08/12/2024. Technique: Real-time sonographic images of the pelvis were obtained transabdominally and transvaginally using grayscale, color, and Doppler imaging. Comparison: None. Findings: Uterus: Normal. Gestational sac: Mean sac diameter measures 6.0 centimeter, compatible with an average ultrasound age of 12 weeks 1 day. pole: [place]-rump length measures 4.2 centimeter, compatible with an average ultrasound age of 11 weeks 1 day. Yolk sac: Present. heart rate: 161 beats/min. Right ovary: Not visualized. Left ovary: Size: 3.7 x 2.3 x 2.8 centimeter. Appearance: Normal morphology. 2.2 x 1.5 x 2.4 centimeter corpus luteum. Bladder: Visualized bladder is normal. Other: No free fluid. Impression: Single live intrauterine with crown-rump length corresponding to 11 weeks 1 days. Dictated by Agustín Valladares MD @ 10/22/2024 2:04:29 PM (Electronically Signed)
== END 2024-10-20 13:02 | disposition home or self-care (01) ==
LOC: US 13:01
PROVIDERS: PCP Physician Assistant Medical; Visit Provider Registered Nurse
DX: Z34.91 Encounter for supervision of normal pregnancy, unspecified, first trimester (principal); Z3A.11 11 weeks gestation of pregnancy
CPT/HCPCS: 76801; 83021; 86592; 86703; 86704; 86706; 86762; 86787; 86803; 87086; 87340; 87491; 87591

== ENCOUNTER 2024-12-19 11:55 | Outpatient (CLI) | payer MEDICAID, SELFPAY ==
--- NOTE | 2024-12-19 12:15 | CRLHL7_ITS ---
For Patients: As a result of the 21st Century Cures Act, medical imaging exams and procedure reports are released immediately into your electronic medical record. You may view this report before your referring provider. If you have questions, please contact your health care provider. HELENA by US: 05/10/2025. GA: 19w, 5d. INDICATION: anatomy. CERVIX: Visualized. Measurement: 4.1 TA. POSITIONING: Breech. AMNIOTIC FLUID: 3.6 cm SDP. PLACENTA: Technique: Transabdominal. PLACENTA POSITION: Anterior. Placenta tip to internal os: 5.0 cm. 3-vessel cord. Placental insertion: Central. Biometry: BPD: 4.4 cm. 19w, 1d, 27.9 percent. HC: 17.1 cm. 19w, 5d, 42.0 percent. AC: 15.7 cm. 20w, 6d, 79.6 percent. FL: 3.0 cm. 19w, 2d, 26.7 percent. FL/AC ratio: 19.14 percent. HC/AC ratio: 1.09. heart rate: 142 bpm. EFW: 327.94 g. Weight: 0 lbs, 12 oz. age by this US: 19w, 6d. HELENA by this US: 05/09/2025. Percentile by HELENA: 64.3 percent. SURVEY: Observed Structures Cerebellum: Yes. 2.0 cm; 20w 4d. Cisterna Magna: Yes. 3.2 mm. Nuchal Fold: Yes. 3.1 mm. Lateral Ventricle: Yes. 6.1 mm. CSP: Yes. Midline Falx: Yes. Choroid Plexus: Yes. Spine: Yes. Stomach: Yes. Abd Cord Insertion: Yes. Urinary Bladder: Yes. Kidneys: Yes. Diaphragm: Yes. Nose/lips: Yes. Orbital view: Yes. Profile: Yes. Upper Extremities: Yes. Lower Extremities: Yes. Hands: Yes. Feet: Yes. Four-Chamber Heart: Yes. LVOT: Yes. RVOT: Yes. 3VV: Yes. 3VTV: Yes. IMPRESSION: 1. Concordance of clinical and sonographic dating. 2. Normal anatomic survey. Janak Huerta M.D. Diagnostic Radiologist [email or web address] bM/Dictated by: Janak Huerta MD @ 12/19/2024 10:11:00 PM (Electronically Signed)
== END 2024-12-19 11:56 | disposition home or self-care (01) ==
PROVIDERS: PCP Physician Assistant Medical; Visit Provider Obstetrics & Gynecology
DX: Z34.92 Encounter for supervision of normal pregnancy, unspecified, second trimester (principal); Z3A.19 19 weeks gestation of pregnancy
CPT/HCPCS: 76805

== ENCOUNTER 2025-02-13 13:57 | Outpatient (CLI) | payer MEDICAID, SELFPAY | END 2025-02-13 13:58 | disposition home or self-care (01) | LOC: NFLDREF 13:57 | PROVIDERS: PCP Physician Assistant Medical; Visit Provider Obstetrics & Gynecology | DX: Z34.92 Encounter for supervision of normal pregnancy, unspecified, second trimester (principal); Z3A.27 27 weeks gestation of pregnancy | CPT/HCPCS: 86592; 87086 ==

== ENCOUNTER 2025-03-08 00:11 | Outpatient (CLI) | payer MEDICAID, SELFPAY ==
[2025-03-08 00:37] VITALS: BP 110/60; PULSE 78
[2025-03-08 00:38] VITALS: TEMP 36.9
[2025-03-08] MEDS: CALCIUM CARBONATE 500 MG CHEW 2000 MG PO (01:32)
[2025-03-08] MEDS: PANTOPRAZOLE SODIUM 40 MG INJ IVP (01:56)
[2025-03-08 02:07] VITALS: BP 101/58; PULSE 75
--- NOTE | 2025-03-08 02:45 | PC.OBNST ---
NST Note NST Note Start: 03/08/25 00:26 Freq: ONCE Status: Active Protocol: Document 03/08/25 02:35 GEORGIE (Rec: 03/08/25 02:41 GEORGIE [id number]) NST Note 3 Para (# of births) 1 EDC 05/10/25 Gestational Age In 31 Weeks & 0 Days Weeks & Days Patient Presented Pain with Complaint(s) of If Pain, describe Burning pain in midline abdomen with nausea location Reactive Yes RN Sharif Eduardo, RN Date 03/08/25 Reactive Yes DIANA Liu RN Date 03/08/25 OB NST charge Yes Complete NST Note Yes via Write Note The provider's electronic signature indicates the NST is reactive/appropriate for gestational age. *Note to provider: If an addendum is required, open the patient's chart and click on the note under the Nurse/Allied Health tab.
--- NOTE | 2025-03-29 09:35 | ONC.NURNOTE ---
Diagnosis: Iron Deficiency Iron
--- NOTE | 2025-03-29 09:36 | ONC.NURNOTE ---
Patient scheduled for first dose April 10. Will call back for further scheduling due to is out of town week before and patient needs to find daycare for their 1 year old . Explained to patient that she needs to have 5 doses in 2 weeks per order
== END 2025-03-08 02:25 | disposition home or self-care (01) ==
LOC: OB OUT 00:12 → OB 00:14
PROVIDERS: PCP Physician Assistant Medical; Visit Provider Obstetrics & Gynecology
DX: O26.893 Other specified pregnancy related conditions, third trimester (principal); R10.9 Unspecified abdominal pain; Z3A.31 31 weeks gestation of pregnancy
CPT/HCPCS: 59025; G0463; A9270; J2470; J2550

== ENCOUNTER 2025-03-27 13:55 | Outpatient (CLI) | payer MEDICAID, SELFPAY | END 2025-03-27 13:56 | disposition home or self-care (01) | LOC: NFLDREF 04-02 08:08 | PROVIDERS: PCP Physician Assistant Medical; Referring Provider Physician Assistant Medical; Visit Provider Obstetrics & Gynecology | DX: Z34.93 Encounter for supervision of normal pregnancy, unspecified, third trimester (principal) | CPT/HCPCS: 82728 ==

== ENCOUNTER 2025-05-12 13:25 | Inpatient (IN) | payer OTHER, SELFPAY ==
[2025-05-12] VITALS (75 sets, daily range): BP systolic 109–130; BP diastolic 57–79; PULSE 56–85; RESP 12–20; TEMP 36.2–37.1; O2SAT 88–100; BMI 31.3
[2025-05-12 13:19] LABS: Amnisure Rom* POSITIVE
[2025-05-12 14:04] LABS: Hematocrit* 34.6 % (33.0-51.0); Hemoglobin* 11.2 gm/dL (12.0-16.0); Immature Granulocytes Pct Auto 0.3 %; Mean Corpuscular HGB Conc 32 gm/dL (32-36); Mean Corpuscular Hemoglobin 29 pg (26-34); Mean Corpuscular Volume 90 fL (80-100); RDW Coefficient of Variation % 18.4 % (11.5-15.5); Red Blood Count* 3.85 m/uL (4.00-5.20); White Blood Count* 11.61 K/uL (4.50-11.00)
[2025-05-12] MEDS: AMPICILLIN 2 GM in 0.9 % SODIUM CHLORIDE Mini-bag 100 ML IVPB (14:11)
[2025-05-12 14:13] LABS: Immature Granulocytes Abs Auto 0.00 K/uL (0.00-0.30); Lymphocytes Absolute Auto 1.90 K/uL (0.90-2.90)
[2025-05-12 14:14] LABS: Slide Review Reflex No
[2025-05-12] MEDS: LACTATED RINGERS 1000 ML 1,000 ML 125 ML IV ×2 (14:18→19:44)
[2025-05-12] MEDS: OXYTOCIN 30 unit/500 ML in NS 30 UNIT/500 ML BAG IVPB (15:36)
--- NOTE | 2025-05-12 15:52 | W.PM.LDBA ---
Subjective History of Present Illness Date Seen: 05/12/25 Narrative: Patient is being admitted to Labor and Delivery for early labor following spontaneous rupture of membranes at approximately 11:30 a.m. this morning. She is a 29 year old at 40 2/7 weeks gestation. Her full history and physical was dictated by Dr. Koehler on 04/19/2025. Please see this for details. She states that she began having uterine contractions at 6:00 a.m. today. She and her went out to breakfast, at which time the contractions were about every 7 minutes. At 11:30 a.m., she went to the bathroom and had a small amount of clear fluid leakage that she thought perhaps was urine. Upon arrival, her amnisure test was found to be positive for ROM. Specific Issues/Plans G 3 P 1011 Daughter Ivette. FOB: [place] - his first biological baby!! [place]: low risk - female fetus! H&P: 04/19 Dr. Koehler # Anemia: Hgb 10.5 > 10.0 despite PO iron 5 doses IV iron, completed 04/20 #GERD, treated with omeprazole #History of anxiety and depression. Discontinued Lexapro at start of . Feeling stable without medication. #Closely spaced pregnancies. Delivery 03/2024. # Hep B nonimmune - Low risk job, plans to defer re-vaccination #GBS positive-ampicillin in labor Imaging: - 12/19/24: Visualized anatomy WNL. EFW 328g at 64%ile - BPD 28%ile, HC 42%ile, AC 80%, FL 27%. SDP 3.6cm. Anterior placenta, no previa/LL, 3 vessel cord. Breech. Cx 4.1cm. Vaccinations: Flu: declined Covid: declined Tdap: 02/27/25 RSV: NA as received in last Last pap: December 2021 OB - Problem Based A/P Additional Plan (1) Spontaneous rupture of membranes: Status: Acute Plan GBS prophylaxis per protocol. Epidural prn. Delivery/Labor/Induction Plan Plan: expectant management Induction method: per pitocin protocol (to augment labor) OB Result Labs Labs: AmniSure positive Labs Blood Type: A (+) positive Rubella: immune RPR/VDLR: nonreactive GBS Status: positive HBsAG: negative OB Exam Physical Exam Vital signs: Temp Pulse Resp BP Pulse Ox 98.7 F 63 12 114/60 96 05/12/25 15:00 05/12/25 15:00 05/12/25 15:00 05/12/25 15:00 05/12/25 12:49 Detailed Labor and Delivery Exam Patient Gravid: yes Dilation (cm): 3 Effacement (%): 75 Contraction Frequency: 1-3 minutes Contraction duration (sec): 45 Tachysystole: No Contraction intensity: Mild Fetus (Single) Station: -1 Amniotic Membrane Status: SROM Amniotic Membrane Fluid Description: Clear Heart Rate Baseline: 120 Monitor Accelerations: Present Monitor Decelerations: None Skilled Nursing Variability: Moderate (6-25)
[2025-05-12] MEDS: AMPICILLIN 1 GM in 0.9 % SODIUM CHLORIDE Mini-bag 100 ML IVPB ×2 (17:58→21:54)
--- NOTE | 2025-05-12 19:12 | PM.ANBPRC ---
[facility] Medical History GERD (gastroesophageal reflux disease) ?K21.9 - Gastro-esophageal reflux disease without esophagitis (ICD-10) Chorioamnionitis ?O41.1290 - Chorioamnionitis, unspecified trimester, not applicable or unspecified (ICD-10) Migraine ?G43.909 - Migraine, unspecified, not intractable, without status migrainosus (ICD-10) Anemia affecting ?O99.019 - Anemia complicating , unspecified trimester (ICD-10) Anxiety ?F41.9 - Anxiety disorder, unspecified (ICD-10) Depression ?F32.A - Depression, unspecified (ICD-10) Peritonsillar abscess ?J36 - Peritonsillar abscess (ICD-10) Surgical History History of tonsillectomy ?Z90.89 - Acquired absence of other organs (ICD-10) Family History Father Lung cancer Mother Migraines Anxiety Maternal Grandmother Breast cancer Social History Narrative: 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 She resides in [place] with boyfriend and Ivette her daughter. No smoking, drinking during , or drug use. What is your current living situation?: I presently have a place to live Problems where you live: no known problems In the past 12 months, utilities in danger of being shut off: no In past 12 months, lack of transportation kept you from medical appts, meetings, work, or getting things needed for daily living: no In the past 12 mos, have been you worried that your food would run out before you had money to buy more?: never true In the past 12 mos, the food you bought just didn't last and you didn't have money to buy more?: never true Smoking Status: Former smoker How often does anyone, including family, friends and others, physically hurt you: never How often does anyone, including family, friends and others, insult or talk down to you: never How often does anyone, including family, friends and others, threaten you with harm: never How often does anyone, including family, friends and others, scream or curse at you: never Meds Home Medications and Allergies Home Medications ?Medication ?Instructions ?Recorded ?Confirmed ?Type docosahexaenoic acid 200 mg 200 mg PO DAILY 09/15/23 05/12/25 History capsule ( DHA) omeprazole 10 mg capsule,delayed 20 mg (2 x 10 mg) PO ONCE #30 caps 03/13/25 05/12/25 Rx release Allergies Allergy/AdvReac Type Severity Reaction Status Date / Time No Known Drug Allergies Allergy Verified 05/12/25 12:49 Results Labs Labs: Laboratory Results - last 24 hr 05/12/25 05/12/25 12:49 13:58 WBC 11.61 H RBC 3.85 L Hgb 11.2 L Hct 34.6 MCV 90 MCH 29 MCHC 32 RDW Coeff of [place]a 18.4 H Plt Count 212 Neut % (Auto) 76.9 H Lymph % (Auto) 16.5 L [place] % (Auto) 5.2 Eos % (Auto) 0.9 Baso % (Auto) 0.2 Neut # (Auto) 8.90 H Lymph # (Auto) 1.90 [place] # (Auto) 0.60 Eos # (Auto) 0.10 Baso # (Auto) 0.00 Abs Immat Gran (auto) 0.00 Imm/Tot Granulo (auto) 0.3 Membrane Rupture POSITIVE Blood Type A Positive Antibody Screen NEGATIVE Vital Signs Vital Signs: Last Vital Signs Temp 98.4 F 05/12/25 18:03 Pulse 67 05/12/25 19:08 Resp 16 05/12/25 18:03 BP 130/70 05/12/25 19:08 Pulse Ox 100 05/12/25 19:12 Weight: 90.673 kg Height: 170.18 cm Anesthesia Procedures Epidural Insertion Patient Location: OB Start Time: 18:50 Stop Time: 19:50 Start Date: 05/12/25 Stop Date: 05/12/25 Reason for Block: procedure for pain Patient Position: sitting Performed By: Jose Maria Draper Preanesthetic Checklist: IV checked, risks and benefits discussed, monitors and equipment checked, pre-op evaluation, timeout performed and anesthesia consent Prep: chlorhexidine gluconate Monitoring: blood pressure monitoring, continuous pulse oximetry and heart rate Approach: midline Vertebral Space: lumbar (1-5) Epidural Technique: ANNETTE saline Needle Type: Tuohy needle Injection Technique: continuous catheter Needle gauge: 17 Needle Length (cm): 10 cm Needle Insertion Depth (cm): 6 Catheter Gauge: 19 Catheter Type: multi-orifice Catheter at skin depth (cm): 12 Test Dose Result: negative and lidocaine 1.5% with epinephrine 1 to 200,000
[2025-05-12] MEDS: ROPIVACAINE 0.2% 100 ml 100 ML 12 MG EPIDURAL (19:14)
[2025-05-12] MEDS: BUPIVACAINE 0.25% PF 10 ML 10 ML ML EPIDURAL (19:14)
--- NOTE | 2025-05-12 22:45 | PM.OBPNL ---
Subjective Time Seen by Provider: 22:40 Date Seen: 05/12/25 Narrative: The patient is comfortable with epidural. Is aware of contractions, but does not feel pressure. I was asked to evaluate the patient as it was thought that she might be completely dilated with a bulging forebag. Objective Vital Signs: Last Vital Signs Temp 98.3 F 05/12/25 22:10 Pulse 62 05/12/25 22:30 Resp 16 05/12/25 22:10 BP 120/69 05/12/25 22:30 Pulse Ox 98 05/12/25 22:43 Pelvic Exam Dilation (cm): 8 Effacement (%): 100 Station: 0 Comments: Bulging forebag Contractions Monitor mode: External Contraction Frequency: 2-3 minutes Contraction pattern: Regular Contraction intensity: Strong/Firm Pitocin Rate (mU/min): 9 Assessment Assessment: active labor Station: -1 Amniotic Membrane Status: SROM Status: Category l Heart Rate Baseline: 135 Office Executive Variability: Moderate (6-25) Monitor Accelerations: Present Monitor Decelerations: None Plan Plan: For bag was artificially ruptured, copious clear fluid noted. Continue current management. Anticipate vaginal delivery.
[2025-05-13] VITALS (17 sets, daily range): BP systolic 97–129; BP diastolic 53–80; PULSE 58–82; RESP 16; TEMP 36.6–37; O2SAT 97–99
--- NOTE | 2025-05-13 00:36 | W.PM.OBVAGDE ---
OB Procedure Vag Delivery Mother Details Mother Details: The patient is a 29 year-old, 3, Para 1011, admitted on 05/12/25 at 40 2/7 weeks gestation in early labor following SROM. : 3 Para: 1 Weeks Gestation: 40.3 Admission Date: 05/12/25 Additional Details Amniotic Membrane Status: SROM Amniotic Membrane Rupture Date: 05/12/25 Amniotic Membrane Rupture Time: 11:30 Amniotic Membrane Fluid Description: Clear Analgesia/Anesthesia Type: Epidural Waterbirth: No Pitcoin: Yes Intrapartal Events: Labor Augmentation Delivery augmentation: pitocin Labor Onset: 18:36 (05/12/25) Complete: 00:17 (05/13/25) Pushin:22 Heart: heart tones during second stage were 125 bpm. Delivery Details Delivery Date: 05/12/25 Delivery Time: 00:22 Route of delivery: Gender: Female Infant Viability: Alive; Heart Rate Present Position at Delivery: OA Delivery Details: Delivered via spontaneous vaginal delivery in one push. was placed on maternal abdomen.? Cord was clamped and cut after a 60 second delay. Nose and mouth were bulb suctioned.? weight pending. 1 Minute Interval Total Score: 8 5 Minute Interval Total Score: 9 Additional Details Shoulder Dystocia: No Placenta Delivery Time: 00:28 Placental Delivery Description: Spontaneous Procedure Done: Global Blood Loss: 75 Laceration: None Episiotomy Description: None Blood Loss Measurement Type: QBL [place] Used: No Sponge/Need Count Correct: Yes Cord Vessel Description: 3 Vessels Event Summary Status: Mother and infant were stable after delivery. Disposition: floor
[2025-05-13] MEDS: IBUPROFEN 600 MG TABLET PO ×2 (08:04→16:09)
[2025-05-13] MEDS: DOCUSATE SODIUM 100 MG CAPSULE PO (08:05)
--- NOTE | 2025-05-13 11:45 | PM.ANPOST ---
Post Anesthesia Note Post Anesthesia Note Patient seen: Inpatient Respiratory Status: adequate Cardiovascular Status: adequate Mental Status: baseline Pain: adequate Temp: baseline Anesthetic awareness: N/A Complications: none Follow care: none
--- NOTE | 2025-05-13 13:34 | P.OBPN_ITS ---
OB - PN:Subj Subjective Date Seen: 05/13/25 Patient comments OB post-: no complaints [place] status: Narrative: The patient is a 29-year-old 3 now para 2012 who is status post a normal spontaneous vaginal delivery just after midnight early this morning. She generally feels well and has no concerns. OB - PN: Obj Exam Physical Exam: Vital signs: Temp Pulse Resp BP Pulse Ox O2 Del Method 98.1 F 63 16 127/80 97 Room Air 05/13/25 12:20 05/13/25 12:20 05/13/25 12:20 05/13/25 12:20 05/13/25 12:20 05/13/25 12:20 Constitutional: Constitutional: no acute distress Routine Abdominal Exam: Abdominal: Present soft; Absent tenderness Fundus: Present firm Routine Extremities Exam: Extremities: Present normal inspection and pedal edema; Absent calf tenderness Routine Neurological Exam: Neurological: Present alert and oriented X3 Routine Psychiatric Exam: Psychiatric: Present normal affect OB - PN: Obj Data Labs Labs: Laboratory Results - last 24 hr 05/12/25 13:58 WBC 11.61 H RBC 3.85 L Hgb 11.2 L Hct 34.6 MCV 90 MCH 29 MCHC 32 RDW Coeff of [place]a 18.4 H Plt Count 212 Neut % (Auto) 76.9 H Lymph % (Auto) 16.5 L [place] % (Auto) 5.2 Eos % (Auto) 0.9 Baso % (Auto) 0.2 Neut # (Auto) 8.90 H Lymph # (Auto) 1.90 [place] # (Auto) 0.60 Eos # (Auto) 0.10 Baso # (Auto) 0.00 Abs Immat Gran (auto) 0.00 Imm/Tot Granulo (auto) 0.3 Blood Type A Positive Antibody Screen NEGATIVE OB - PN: A/P Delivery Assessment and Plan (1) Normal spontaneous vaginal delivery: Status: Acute Plan day: 0 Plan: routine care
[2025-05-14 07:04] LABS: Hemoglobin* 10.7 gm/dL (12.0-16.0)
[2025-05-14 08:00] VITALS: BP 105/62; PULSE 69; RESP 18; TEMP 36.7; O2SAT 97
[2025-05-14] MEDS: DOCUSATE SODIUM 100 MG CAPSULE PO (09:59)
--- NOTE | 2025-05-14 10:56 | PM.OBDSVD1 ---
DS: Providers Provider Date Seen: 05/14/25 Date of admission: 05/12/25 13:25 Primary care physician: Argelia Cole PA-C Admitting Clinician: Gayatri Still MD Attending Physician on discharge: Kiesha Griffiths CNM Date of Discharge: 05/14/25 DS: Diagnosis Discharge Diagnosis (1) Chorioamnionitis: Status: Inactive (2) care and examination of lactating mother: Status: Acute Exam Narrative: Exam Narrative: VSS, afebrile GENERAL APPEARANCE: ?normal affect, alert, no distress MOOD: ?appropriate HEENT: normocephalic, neck supple, full ROM CHEST: ?Symmetrical chest wall movement. ?Normal respiratory effort. ?Clear to auscultation HEART: ?regular rate and rhythm ABDOMEN: ?soft, non-tender. Uterine fundus is firm, at Umbilicus, Midline and is appropriate for the stage of recovery. ?Bowel sounds present. PERINEUM: ?mild edema of the perineum, intact. EXTREMITIES: ?normal and trace edema Const: Vital Signs, click to edit/add: Vital Signs - 24 hr 05/13/25 12:20 05/13/25 16:10 05/13/25 20:14 Temperature 98.1 F 97.8 F 98.2 F Pulse Rate [Pulse Oximeter] 63 69 61 Respiratory Rate 16 16 16 Blood Pressure [Ri ght Arm] 127/80 109/72 107/65 Pulse Oximetry 97 97 98 Oxygen Delivery Me thod Room Air Room Air Room Air 05/13/25 20:30 05/14/25 08:00 Temperature 98.2 F 98.1 F Pulse Rate [Pulse Oximeter] 69 Respiratory Rate 18 Blood Pressure [Ri ght Arm] 105/62 Pulse Oximetry 97 Oxygen Delivery Me thod Room Air Documenting provider has reviewed patient's vital signs: yes OB - DS: Summary Hospital Course Hospital Course: Alexa is a 29 y.o. who was admitted to [facility] for SROM. ?She had an uncomplicated NVD.?The patient feels well. ?The pain is well controlled with current medications. ?She has no new complaints. ?She is breast feeding and reports things are going well.? the patient has done well.? Vitals have been stable.? She has remained afebrile.? Has a good appetite, is tolerating a general diet. ?She is voiding without difficulty.? She is passing gas and has had a bowel movement.? She is ambulating and denies any dizziness.? Has Small amount of rubra lochia. ?She is planning an IUD for prevention. Peripartum Data Infant delivery method: Vaginal Laceration description: None complications: none [place] Infant Gender: Female Infant Discharge Plan: Home Status at Discharge Functional status at discharge: independent ambulation Overall status at discharge: patient is progressing back to baseline Time Spent with Patient Time attestation: Total time spent providing and/or coordinating discharge services: Time spent: Less than 30 minutes Discharge Plan Discharge Disposition: Home, Self-Care Date of Admission: 05/12/25 13:25 Attending Provider on Discharge: Kiesha Griffiths Primary Care Provider: Argelia Cole Condition: Stable Anticipated Discharge Date/Time: 05/14/25 12:00 Discharge Medications: New acetaminophen 500 mg Tablet 1,000 mg PO Q6H PRNQty: 0 0RF docusate sodium 100 mg Capsule 100 mg PO DAILY Qty: 9 0RF ibuprofen 600 mg Tablet 600 mg PO Q6H PRNQty: 60 0RF Continued DHA 200 mg capsule 200 mg PO DAILY omeprazole 10 mg capsule,delayed release(DR/EC) 20 mg PO ONCE Qty: 30 0RF Discharge Orders: Discharge Order (Routine); Ordered 05/14/25 Ordered By: Kiesha Griffiths Patient Education: OB Over the Counter Medication Information, OB Vaginal/Breast Feeding Additional Instructions: Discharge instructions were reviewed with the patient including signs and symptoms of infection and home going medications Nothing vaginally for 6 weeks: no tampons or intercourse Off Work or School for 6 weeks 2-week visit: discuss infant feeding concerns, review control options and screen for anxiety/depression. 6-week visit for an annual exam. consultation services are available to all mothers and babies for the first year after delivery.? To make an appointment, please call [phone]. Activity Level: Activity as Tolerated Discharge Diet: Regular Follow Up Appointments: [facility] [Provider Group] Forms: [employer] Info Instructions
--- NOTE | 2025-05-14 13:54 | PC.NURSE ---
Nursing Care Hours: 8396-3615 Pt this shift calm and cooperative, alert and oriented. No c/o pain. Ambulating in room, voiding and passing gas. No IV in place. DC instructions went over with pt and spouse, all questions and concerns addressed.
== END 2025-05-14 13:54 | disposition home or self-care (01) | DRG 807 ==
LOC: OB OUT 13:25 → OB 13:25
PROVIDERS: Admitting Provider Obstetrics & Gynecology; PCP Physician Assistant Medical; Visit Provider Obstetrics & Gynecology
DX: O99.824 Streptococcus B carrier state complicating childbirth (principal); Z37.0 Single live birth; O99.02 Anemia complicating childbirth; D64.9 Anemia, unspecified; K21.9 Gastro-esophageal reflux disease without esophagitis; Z86.59 Personal history of other mental and behavioral disorders; Z3A.40 40 weeks gestation of pregnancy
CPT/HCPCS: 01967; 36415; 84112; 85018; 85025; 86592; 86850; 86900; 86901; G0463; A9270; J0290; J0665; J2795; J7120

== ENCOUNTER 2025-06-28 15:57 | Outpatient (CLI) | payer OTHER, SELFPAY ==
[2025-07-07 07:52] LABS: HPV Source Cervix
[2025-07-08 17:34] LABS: HPV Genotype 16 by TMA Not Detected; HPV Genotype 18/45 by TMA Not Detected
[2025-07-11 19:46] LABS: Pap Test Reviewed by Pathologi Done
[2025-07-11 19:47] LABS: Pap Test Digital Imaging Done
== END 2025-06-28 15:58 | disposition home or self-care (01) ==
PROVIDERS: PCP Physician Assistant Medical; Visit Provider Physician Assistant
DX: Z12.4 Encounter for screening for malignant neoplasm of cervix (principal)
CPT/HCPCS: 87624; 87625; 88141; 88142; 88175